=== PATIENT | female | born 1980 | race Caucasian/White ===

== ENCOUNTER 2023-08-30 12:48 | Outpatient (CLI) | payer OTHER, SELFPAY ==
--- NOTE | ~2023-08-30 | MR_ITS ---
IMPRESSION: 1. Uterine fibroids. EXAMINATION: MR pelvis wo/w con DATE: 08/30/2023 13:40 INDICATION: Uterine mass. TECHNIQUE: Magnetic resonance imaging (MRI) of the pelvis was performed without and with 10 mL MultiH ance intravenous contrast. COMPARISON: None. FINDINGS: There are no dilated loops of bowel. There are 3 hemorrhagic cysts in the left ovary measuring up to 8 mm . There are 4.0 cm and 2.1 cm subserosal fibroids on the left. The endometrial complex measures 12 mm in thickness. The junctional zone is normal. There is physiologic fluid in the pelvis. There ar e no pathologically enlarged lymph nodes. IMPRESSION: 1. Uterine fibroids. Reviewed, dictated and finalized at location [facility]. [facility] PROFESSION[employer]
== END 2023-08-30 12:49 ==
LOC: MICIMG 12:48
PROVIDERS: PCP Obstetrics & Gynecology Gynecology; Visit Provider Obstetrics & Gynecology Gynecology
DX: D25.2 Subserosal leiomyoma of uterus (principal); N85.8 Other specified noninflammatory disorders of uterus
CPT/HCPCS: 72197; A9577

== ENCOUNTER 2023-09-23 00:37 | Day surgery (SDC) | payer OTHER, SELFPAY ==
[2023-09-20 08:29] VITALS: BMI 21.2
--- NOTE | 2023-09-20 08:34 | PC.NURSE ---
Report to the Outpatient Waiting Room, entrance under the green pavilion located off [facility], at time 0845 on date 09/23/23. Planned Procedure Time: 1045. Time changes happen often and if your time is changed the preop area will call you the afternoon before. - You and your visitor will be asked to self-screen and do not enter if you have any COVID symptoms. - A mask is optional within the hospital at this time. Patients may have clear liquids (water, carbonated beverages, clear teas, apple juice) until 3 hours prior to surgery with a maximum of 20 ounces. - No food from midnight until time of surgery Take the following medications with a SIP of water the morning of surgery: NONE DO NOT STOP ANY OF YOUR OTHER PRESCRIPTION MEDICATIONS PRIOR TO SURGERY ?EXCEPT THE FOLLOWING Medications to discontinue per physician: N/A Date to take last dose: N/A Please no make-up, nail indonesian, hairspray, perfume, deodorant, or body powder the day of surgery. No jewelry (including any body piercings) or valuables the day of surgery, leave them at home. Please take a shower or bath the night before, or the morning of, surgery with an antibacterial soap. Wear comfortable, loose fitting clothing. - Jewelry must be removed prior to entering the operating room. Rings and piercings that are not removed may be cut off. - The hospital will not accept responsibility for valuables. - Please leave all valuables, including medications, at home the day of surgery. If you are going home after surgery, a licensed driver starting gate must drive you home. - NO public transportation without another adult if you receive anesthesia. - We recommend that an adult stay with you for 24 hours following discharge. - We also recommend that you do not drive, make important decision, drink alcoholic beverages, or take any drugs that were not prescribed by your health care provider for at least 24 hours after your discharge time. Follow any additional instructions given to you from your surgeon. If you or anyone in your household have experienced Covid symptoms in the past week, please notify your surgeon or the nurse liaison at the phone number below for possible testing. Telephone instructions given to PT - KRISSY DEGROOT and asked if any additional questions and then verbalized understanding. Patient advised to call surgeon office or pre surgery nurse liaison [phone] if any additional questions.
--- NOTE | 2023-09-23 07:37 | P.HP_ITS ---
History of Present Illness History of Present Illness Consent: Risks, benefits, and alternatives have been discussed and questions answered. Patient agrees to proceed with procedure. Chief complaint: menorrhagia, fibroids Narrative: Glenis Yeager is a 43 year old female with abnormal uterine bleeding. Pelvic ultrasound shows several fibroids. It was recommended to undergo D&C hysteroscopy with possible myomectomy. Risks of infection, bleeding, perforatio n, fluid imbalance, and possible pathology are discussed. Patient voices understanding and agrees to proceed. Review of Systems Review of Systems: not repeated day of surgery; patient states no changes in status [facility] Past Medical History Medical History (Updated 09/23/23 @ 07:55 by Suzanne Avendaño MD) Anxiety and depression Social History Social History Smoking status: Never smoker Alcohol intake: current Alcohol use details: 3 GLASSES OF WINE/NIGHT Substance use: never Substance use type: does not use Living arrangements: with family Spiritual care concerns: No Meds Home Medications and Allergies Home Medications Medication Instructions Recorded Confirmed Type sertraline 50 mg tablet 50 mg PO HS 09/20/23 09/20/23 History Allergies Allergy/AdvReac Type Severity Reaction Status Date / Time hydrocodone AdvReac Nausea Verified 09/20/23 08:28 Exam Const: General: healthy appearing and alert Orientation/consciousness: patient oriented x3 Resp: Effort & Inspection: normal respiratory effort GI: GI Palp: Yes Soft to palpation, No Tenderness to palpation present (GI) and No Palpable mass present : External Female Exam: normal external appearance Speculum Exam - Vagina: normal appearance of the vagina and normal vaginal discharge Speculum Exam - Cervix: normal appearance of the cervix Bimanual exam- vagina & uterus: consistency normal and enlarged Bimanual Exam- Adnexa, other: normal adnexae and No adnexal tenderness Neuro: General: patient oriented x3 Assessment and Plan Assessment and plan (1) Menorrhagia: Code(s): N92.0 - Excessive and frequent menstruation with regular cycle Status: Acute Assessment and Plan: plan to proceed with D&C hysteroscopy (2) Fibroids: Code(s): D21.9 - Benign neoplasm of connective and other soft tissue, unspecified Status: Acute Assessment and Plan: plan to proceed with possible myomectomy of submucosal
--- NOTE | 2023-09-23 07:37 | WPDHPUPDATE1 ---
History and Physical Update Update Date/Time: 09/23/23 07:37 History and Physical has been reviewed, including an updated exam of the patient. There are NO changes in the patient's condition. Risks, benefits, and alternatives have been discussed and questions answered. Patient agrees to proceed with procedure.
--- NOTE | 2023-09-23 08:26 | P.PNAN_ITS ---
Anes - Initial Pre Proc Eval Procedure: Operation Date: 09/23/23 10:45 Proposed Procedures p Hysteroscopy Dilation and Curettage Possible Myosure - Suzanne Avendaño MD Date/Time: 09/23/23 08:26 Surgeon: Suzanne Avendaño MD Pre Op Diagnosis: menorrhagia, fibroids Patient Data Age: 43 Gender: F Height: 1.6 m Weight: 54.5 kg Allergies Allergy/AdvReac Type Severity Reaction Status Date / Time hydrocodone AdvReac Nausea Verified 09/23/23 09:00 Home Medications Medication Instructions Recorded Confirmed Type sertraline 50 mg tablet 50 mg PO HS 09/20/23 09/20/23 History Patient hx anesthesia problems: none Family hx anesthesia problems: none Results Review: All pre-operative results and documents have been reviewed as part of the pre- operative evaluation. FOR[facility]LY [facility], [facility] Past Medical History Medical History (Updated 09/23/23 @ 08:26 by Ricardo Carrillo DO) Anxiety and depression Fibroids Social History Social History Smoking status: Never smoker Alcohol intake: current Alcohol use details: 3 GLASSES OF WINE/NIGHT Substance use: never Substance use type: does not use Living arrangements: with family Spiritual care concerns: No Anes - Eval Final PreProcedure Day of Procedure 09/23/23 08:26 Patient weight: normal Heart: regular rate and rhythm Lungs: clear to auscultation and normal air movement Airway: Mallampati scale class II Neurological: alert and oriented Last oral intake: >/= 8 hours ASA classification: III Emergent: no Anesthetic plan: proceed Anesthesia type and monitoring: general GIVS and standard monitoring Results Review: All pre-operative results and documents have been reviewed as part of the pre- operative evaluation. Informed Consent: The patient's anesthetic plan and its attendant risks and benefits were discussed with the patient/family/POA. Questions were solicited and answers provided to the satisfaction of the patient/family/POA.
[2023-09-23] MEDS: ACETAMINOPHEN 500 MG TABLET 1000 MG PO (09:04)
[2023-09-23] MEDS: LACTATED RINGERS 1,000 ML 30 ML IV CONT (09:20)
[2023-09-23 09:38] VITALS: BP 120/78; PULSE 79; RESP 16; TEMP 36.9; O2SAT 100
[2023-09-23 10:37] VITALS: BP 137/91; PULSE 70; RESP 16; O2SAT 100
--- NOTE | 2023-09-23 10:38 | P.OP_ITS ---
Procedure Note - Detailed Date of Procedure 09/23/23 Pre-op Diagnosis menorrhagia, fibroids Post-op Diagnosis Same Procedure Performed D&C hysteroscopy with myomectomy Surgeon Suzanne Avendaño MD Anesthesia MAC Findings uterus sounds to 8cm; multiple fibroids within the cavity Description of Procedure The patient is taken to the operating room and placed under anesthesia in the dorsal lithotomy position. She was prepped and draped in usual sterile fashion. [place] speculum was placed in the vagina and the cervix grasped on the anterior lip with a tenaculum. The uterus is sounded to 8cm. The cervix is serially dilated to a 6 Hegar. The Aveeta mark hysteroscope was placed with the above-stated findings. The Aveeta Wave resection device is placed and under direct visualization all fibroids are removed until the cavity is smooth. The OO sharp curette is then used to curette the endometrium until a good uterine cry was noted in all areas. All instruments are removed. Sponge, needle, and instrument counts are correct per the OR staff. The patient was awakened from anesthesia and taken to recovery in stable condition. Estimated Blood Loss 5 Drains No Packing No Pathology Yes ( Endometrial shavings and curettings) Complications No immediate complications Condition Stable Disposition PACU
[2023-09-23 11:05] VITALS: BP 125/81; PULSE 64; RESP 20
[2023-09-23 11:25] VITALS: BP 121/80; PULSE 58; RESP 16
[2023-09-23 11:37] VITALS: BP 119/87; PULSE 63; RESP 18
== END 2023-09-23 11:44 | disposition home or self-care (01) ==
PROVIDERS: PCP Physician Assistant; Visit Provider Obstetrics & Gynecology Gynecology
PROC: 0U5B8ZZ Destruction of Endometrium, Via Natural or Artificial Opening Endoscopic (ICD-10-PCS; CPT 58563; principal; 2023-09-23 10:45)
DX: N92.0 Excessive and frequent menstruation with regular cycle (principal); N85.8 Other specified noninflammatory disorders of uterus; F41.8 Other specified anxiety disorders
CPT/HCPCS: 58561; 88305; A9270; J2250; J2704; J3010; J7120

== ENCOUNTER 2024-03-17 08:55 | Outpatient (CLI) | payer OTHER, SELFPAY ==
[2024-03-17 13:08] LABS: Basophils Absolute Auto 0.1 K/mm3 (0.0-0.1); Basophils Percent Auto 0.9 % (0.2-1.2); Eosinophils Absolute Auto 0.4 K/mm3 (0-0.3); Eosinophils Percent Auto 7.6 % (0-4.4); Hematocrit 41.1 % (37.0-47.0); Hemoglobin 13.3 g/dL (12.0-15.0); Immature Granulocyte Absolute 0.01 K/mm3 (0.00-0.031); Immature Granulocyte Percent A 0.2 % (0-0.5); Lymphocytes Absolute Auto 1.93 K/mm3 (0.9-3.2); Lymphocytes Percent Auto 33.4 % (18.3-44.2); Mean Corpuscular HGB Conc 32.4 g/dl (32-36); Mean Corpuscular Hemoglobin 28.7 pg (26-34); Mean Corpuscular Volume 88.8 fl (80-100); Mean Platelet Volume 10.4 fl (7.4-10.4); Monocytes Absolute Auto 0.5 K/mm3 (0.1-0.6); Monocytes Percent Auto 8.5 % (2.6-8.5); Neutrophils Absolute Auto 2.9 K/mm3 (1.3-6.7); Neutrophils Percent Auto 49.4 % (45.5-73.1); Platelet Count Result 270 k/mm3 (150-375); Red Blood Count 4.63 M/mm3 (4.2-5.4); Red Cell Distribution Width 13.7 % (11.5-14.5); White Blood Count 5.8 K/mm3 (4.5-10.0)
[2024-03-17 13:11] LABS: Alanine Aminotransferase 21 U/L (6-35); Albumin Level 4.7 g/dL (3.5-5.1); Alkaline Phosphatase 49 U/L (38-126); Anion Gap 10 mmol/L (4-12); Aspartate Amino Transferase 38 U/L (14-36); Bilirubin,Total 0.5 mg/dL (0.2-1.3); Blood Urea Nitrogen 9 mg/dL (7-17); Calcium 9.7 mg/dL (8.4-10.2); Carbon Dioxide 28 mmol/L (22-30); Chloride 99 mmol/L (98-107); Cholesterol 228 mg/dL (0-200); Estimated Glomerular Filt Rate > 60; Glucose 87 mg/dL (65-110); HDL Direct 89 mg/dL; Magnesium 2.1 mg/dL (1.6-2.3); Sodium 137 mmol/L (137-145); Triglycerides 94 mg/dL (<150)
[2024-03-17 13:22] LABS: LDL Cholesterol Direct 111 mg/dL
[2024-03-17 14:23] LABS: Iron 71 ug/dL (37-170)
[2024-03-17 14:32] LABS: Percent Iron Saturation 18 % (20-50)
== END 2024-03-17 08:56 | disposition home or self-care (01) ==
LOC: ANHGOSHLAB 08:56
PROVIDERS: PCP Nurse Practitioner Family; Visit Provider Nurse Practitioner Family
DX: N92.0 Excessive and frequent menstruation with regular cycle (principal); F41.9 Anxiety disorder, unspecified; G25.81 Restless legs syndrome; Z13.220 Encounter for screening for lipoid disorders
CPT/HCPCS: 36415; 80053; 80061; 82607; 83540; 83550; 83735; 84443; 85025

== ENCOUNTER 2025-06-24 13:17 | Outpatient (CLI) | payer OTHER, SELFPAY ==
--- NOTE | ~2025-06-24 | MM_ITS ---
EXAMINATION: MM screening marciano BI w brittany HISTORY: Screening. TECHNIQUE: Craniocaudal and mediolateral oblique 3-D tomosynthesis images were obtained and synthetic 2-D images were generated. CAD analysis was submitted and interpreted. COMPARISON: None available. BREAST PARENCHYMAL COMPOSITION: Dense: The breasts are extremely dense FINDINGS: No suspicious masses are seen. There are no suspicious calcifications. No unexplained architectural distortion is seen. There are no skin or nipple abnormalities identified. There is no adenopathy seen on the images submitted. IMPRESSION: No mammographic evidence to suggest malignancy is seen. The patient may return to screening mammography as per ACR guidelines. BI-RADS 1 - Negative. Reviewed, dictated and finalized at location C. [facility] [employer]PER[employer]
== END 2025-06-24 13:18 | disposition home or self-care (01) ==
LOC: MICIMG 13:17
PROVIDERS: PCP Nurse Practitioner Family; Visit Provider Obstetrics & Gynecology Gynecology
DX: Z12.31 Encounter for screening mammogram for malignant neoplasm of breast (principal)
CPT/HCPCS: 77063; 77067